=== PATIENT | male | born 1960 | race Caucasian/White ===

== ENCOUNTER → 2017-05-25 | Day surgery (SDC) | payer BC ==
[~2017-05-25] VITALS: Ht 170.2 cm; Wt 107.4 kg
[~2017-05-25] MED LIST: *RESP: ALBUTEROL 2.5 MG/3 ML NEB (PRN) PERIprocedural Use ONLY NEB ONE; ASPI81CH CHEW; CHLORHEXIDINE GLUCONATE 2 % 1 PACK (2 CLOTHS) TOPICAL PRN; CIPR500T2 PO; CYAN1TAB PO; DEXAMETHASONE SOD PHOS 4 MG/ML VIAL ONE; DO NOT ADM ANY ANTICOAGULANT DRUGS PRN; FAMOTIDINE 20 MG/2 ML VIAL ONE; FENO1TAB39 PO; FERR325C PO; FUROSEMIDE 40 MG/4 ML VIAL ONE; INSULIN HUMAN REGULAR 1,000 UNITS/10 ML VIAL SQ PRN; LACTATED RINGER'S 1000 ML INJ 1,000 ML IV ONE; LACTATED RINGER'S 1000 ML IV PRN; LEVO100T5 PO; LIDOCAINE HCL 1% PF 5 ML AMPULE OTHER ONE; METF1000 PO; METO25TA3 PO; METOPROLOL TARTRATE 25 MG TAB PO PRN; MIDAZOLAM HCL 2 MG/2 ML VIAL ONE; MORPHINE SULFATE 4 MG/ML INJ IV PRN; ONDANSETRON HCL 4 MG/2 ML VIAL IV PUSH PRN; ONDANSETRON HCL 4 MG/2 ML VIAL ONE; PERC10TA27 PO; PHENYLEPH/NS 1000 MCG/10 ML SYR IV ONE; PIOG15TA5 PO; POVIDONE IODINE 5% (ANTISEPSIS KIT) 4 APPLICATIONS EACH NARE PRN; PRAV10TA PO; PRAV20TA2 PO; PROPOFOL 200 MG/20 ML AMP IV ONE; SODIUM CHLORID 0.9% 500 ML IV PRN; ceFAZolin 1,000 MG/NS 100 ML IV SCH; ePHEDrine/NS 25 MG/5 ML SYR IV ONE; oxyCODONE/ACETAMINOPHEN 10 MG/325 MG TAB PO PRN
--- NOTE | 2017-05-25 07:57 | RADRPT ---
EXAM DATE/TIME: 05/25/2017 06:57 [place] COMPARISON: No previous studies available for comparison. INDICATIONS : Pre-op, lithotripsy. MEDICAL HISTORY : Renal calculi. SURGICAL HISTORY : None. ENCOUNTER: Initial ACUITY: 1 day PAIN SCORE: 0/10 LOCATION: Right abdomen FINDINGS: Supine view of the abdomen was performed. The abdominal bowel gas pattern is normal. Numerous calcul i identified in the kidney on the right. There is an approximately 1 cm calculus overlying the proxim al right ureter as well. No left-sided renal calculi are seen. CONCLUSION: 1. Multiple right renal calculi, 5 mm or less in diameter. Approximately 1 cm calculus overlies proxi mal right ureter. Jim Bustillos MD on May 25, 2017 at 7:54 Board Certified Radiologist. This report was verified electronically.
--- NOTE | 2017-05-25 09:52 | EKG ---
Date Performed: 05/25/2017 Time Performed: 07:37:09 PTAGE: 56 years EKG: Sinus rhythm INCOMPLETE RIGHT BUNDLE BRANCH BLOCK LEFT ANTERIOR FASCICULAR BLOCK POSSIBLE ANTERIOR MYOCARDIAL INF ARCTION , OF INDETERMINATE AGE ABNORMAL ECG NO PREVIOUS TRACING DOCTOR: Jeff Smith Interpretating Date/Time 05/25/2017 09:50:55
--- NOTE | 2017-05-25 10:37 | PD.OP ---
Operative Report Date of Surgery: May 25, 2017 Preoperative Diagnosis: Left renal and left ureteral calculi Postoperative Diagnosis: Same Procedure: Cystoscopy with right retrograde study, right double-J stent insertion, right extraportal shockwave lithotripsy of 1 cm right ureteral stone and 6 mm right lower pole stone Anesthesia: Gen. LMA Surgeon: Viet Salazar Nail Specialist(s): None Resident Surgeon: None Operation and Findings: 56-year-old male presented to the emergency room in [place] last week. CT scan at that time demonstrated a 1.3 cm proximal right ureteral stone and a 6 mm right lower pole stone. He was seen in the office and elected to undergo right extracorporeal shockwave lithotripsy with right double-J stent insertion. This was recommended due to the large size of the ureteral stone. Risk and benefits were discussed preoperatively and he was willing to proceed. Patient was brought to the operating room and identified by myself as Kiko Vasqueznemacher. He was placed in the dorsal lithotomy position, prepped and draped in usual sterile fashion, received preprocedure antibiotics, and general LMA anesthesia was administered. 22 [place]i cystoscope was inserted in the bladder mondragon cystoscopy did not reveal any abnormalities. The right ureteral orifice was identified and 5 [place]i aortic catheter was inserted into the right ureteral orifice and retrograde study was performed. The large right ureteral stone was identified. A 0.35 sensor wire was then passed through the open-ended catheter and left with good curl in the kidney. A 6 Kuwaiti 22 cm right double-J stent was placed with good curl in the kidney and the bladder. The scope was removed and a 16 [place]i Lozoya was inserted. ESWL therapy commenced. The patient received a total 2500 shocks at a rate of 60 on the right proximal ureteral stone. The remaining 500 shocks were then performed on the right lower pole stone. Good fragmentation the stone was visualized under fluoroscopic and ultrasound imaging. He tolerated the procedure well. The Lozoya was removed and he was awoken and transferred occurring in stable condition. He will follow -up in the office in 2 weeks to obtain a KUB x-ray prior. If the stone is not visualized to undergo cystoscopy with stent pull at that time. Viet Salazar DO May 25, 2017 10:37
[2017-05-25 11:50] VITALS: BP 148/75; PULSE 83; RESP 20; TEMP 97.8; O2SAT 94
== END | disposition home or self-care (01) ==
LOC: HSDC 06:20
PROVIDERS: ATTEND Urology
DX: N20.2 Calculus of kidney with calculus of ureter (principal); Z01.810 Encounter for preprocedural cardiovascular examination
CPT/HCPCS: 00873; 00910; 50590; 52332; 74000; 93005; 94664; C2617; J0690; J1100; J1940; J2250; J2370; J2405; J3010; J7120; J7613

== ENCOUNTER → 2017-06-30 | Day surgery (SDC) | payer BC ==
[~2017-06-30] VITALS: Ht 170.2 cm; Wt 106.3 kg
[~2017-06-30] MED LIST changes: -*RESP: ALBUTEROL 2.5 MG/3 ML NEB (PRN) PERIprocedural Use ONLY NEB ONE; +ACETAMINOPHEN/HYDROcodone 325 MG/5 MG TAB PO PRN; +AMPICILLIN 1 GM/NS 100 ML IV SCH; +ASPI-516 CHEW; -ASPI81CH CHEW; +BELLADONNA ALKALOIDS/OPIUM 60 MG SUPP RECTAL ONE; -CIPR500T2 PO; -DEXAMETHASONE SOD PHOS 4 MG/ML VIAL ONE; -FAMOTIDINE 20 MG/2 ML VIAL ONE; +FENO145T2 PO; +FERR325T72 PO; +GENTAMICIN INJ 180 MG in SODIUM CHLORIDE 0.9% INJ 100 ML IV SCH; -LACTATED RINGER'S 1000 ML INJ 1,000 ML IV ONE; +LEVO112T2 PO; -LIDOCAINE HCL 1% PF 5 ML AMPULE OTHER ONE; -MIDAZOLAM HCL 2 MG/2 ML VIAL ONE; +MORPHINE SULFATE 2 MG/ML INJ IV PRN; -MORPHINE SULFATE 4 MG/ML INJ IV PRN; -ONDANSETRON HCL 4 MG/2 ML VIAL ONE; -PERC10TA27 PO; -PHENYLEPH/NS 1000 MCG/10 ML SYR IV ONE; -PRAV10TA PO; -PROPOFOL 200 MG/20 ML AMP IV ONE; -ceFAZolin 1,000 MG/NS 100 ML IV SCH; -ePHEDrine/NS 25 MG/5 ML SYR IV ONE; -oxyCODONE/ACETAMINOPHEN 10 MG/325 MG TAB PO PRN
[2017-06-30 07:29] LABS: AUTOMATED NEUTROPHIL # 3.8 TH/MM3 (1.8-7.7); BASOPHIL % 0.4 % (0.0-2.0); EOSINOPHIL # 0.2 TH/MM3 (0-0.4); EOSINOPHIL % 3.4 % (0.0-4.0); HEMATOCRIT 34.6 % (39.0-51.0); HEMO FLAGS DIFF FINAL; LYMPH % 27.1 % (9.0-44.0); LYMPHOCYTE # 1.7 TH/MM3 (1.0-4.8); MEAN CELL VOLUME 80.5 FL (80.0-100.0); MEAN CORPUSCULAR HGB CONC 32.3 % (32.0-36.0); MONO % 9.6 % (0.0-8.0); NEUT % 59.5 % (16.0-70.0); PLATELET COUNT 245 TH/MM3 (150-450); RED CELL DISTRIBUTION WIDTH 16.5 % (11.6-17.2); WHITE BLOOD COUNT 6.4 TH/MM3 (4.0-11.0)
--- NOTE | 2017-06-30 10:41 | PD.OP ---
Operative Report Date of Surgery: Jun 30, 2017 Preoperative Diagnosis: Right ureteral and renal calculi Postoperative Diagnosis: Same Procedure: Cystoscopy, right ureteroscopy with laser lithotripsy with stone extraction, right retrograde pyelogram, right double-J stent exchange Anesthesia: [place] Surgeon: Viet Salazar Drafter Chief Design(s): [place] Operation and Findings: 56-year-old male with history of a right 1 cm UPJ stone. He initially underwent cystoscopy with right double-J stent insertion followed by right extracorporeal shockwave lithotripsy. The stone was fragmented but not all of the fragments cleared. Vision made to bring the patient to the operating room and undergo cystoscopy with right ureteroscopy with laser lithotripsy and stone extraction with stent exchange. Risk and benefits were discussed preoperatively and he was willing to proceed. Patient was brought to the operating room and identified by myself as Kiko Nonnemacher. His placement dorsal lithotomy position, prepped and draped in usual sterile fashion, received preprocedure antibiotics and general endotracheal tube anesthesia was induced. A 22 [place] cystoscope was inserted in the bladder and the right ureter stent was grasped with the alligator grasper and brought to the urethral meatus. A 0.35 sensor wire was then passed through the stent leaving the wire with good curl in the kidney and the stent was removed. A navigator ureteral access sheath was then passed over the wire and left in position. The wire was then removed. The flexible Storz ureteroscope was then passed through the ureteral access sheath and using a 200 laser fiber at a setting of 10 and 1000 stone was fragmented. The stone was hard and good fragmentation was obtained. Using the nitinol basket multiple retrievals were performed in order to remove the residual stone burden. After the stone fragments were removed a retrograde pyelogram was performed demonstrating no evidence of any filling defects. The 0.35 sensor wire was passed to the ureteral access sheath and the ureteral access was removed. The cystoscope was backloaded over the wire and then a 22 cm 6 Azeri right double-J stent was placed with a good from the kidney and bladder. The bladder was evacuated and he was awoken and transferred to her room stable in stable condition. He tolerated the procedure well. He will follow-up in the office in 2-3 weeks and undergo cystoscopy with stent removal at that time. Viet Salazar DO Jun 30, 2017 10:40
[2017-06-30 11:55] VITALS: BP 113/61; PULSE 67; RESP 18; TEMP 97.1; O2SAT 97
== END | disposition home or self-care (01) ==
LOC: HSDC 06:14
PROVIDERS: ATTEND Urology
DX: N20.2 Calculus of kidney with calculus of ureter (principal); I10 Essential (primary) hypertension
CPT/HCPCS: 00918; 52356; 82365; 82370; 85025; 88300; C1726; C1769; J0290; J1580; J1940; J7120